=== PATIENT | male | born 1980 | race Caucasian/White ===

== ENCOUNTER 2021-01-15 09:39 | Emergency (ER) | payer OTHER, BC, SELFPAY ==
[2021-01-15 09:40] VITALS: BP 159/101; PULSE 93; RESP 18; TEMP 36.6; O2SAT 100; BMI 21.4
--- NOTE | 2021-01-15 10:03 | EDS_ITS ---
HPI History of Present Illness Chief Complaint: Lower Extremity Injury Informant: patient Narrative Narrative: 40-year-old male in town on business was coming down a ladder when he fell his foot was stuck between a rock and a pipe. He states he had a twisting motion and when he hit the ground his leg came free. He notes pain over the medial aspect of the left knee. He denies any other injuries. PFSH PFSH no medical history Surgical History (Updated 01/15/21 @ 10:[address] Tab Harris DO) S/P ACL repair Social History (Updated 01/15/21 @ 10:[address] Tab Harris DO) household members: spouse current occupational status: employed current gender identity: male ROS ROS ED Constitutional Constitutional ED: Denies chills or weight loss Eyes Eyes: Denies change in vision or diplopia ENT ENT ED: Denies ear pain, rhinorrhea or sore throat Cardiovascular Cardiovascular: Denies chest pain, orthopnea, palpitations or racing heartbeat Respiratory/Chest Respiratory/Chest: Denies cough, dyspnea or orthopnea Gastrointestinal Gastrointestinal: Denies abdominal pain, diarrhea, nausea or vomiting Genitourinary Genitourinary ED: Denies dysuria, hematuria or urinary frequency Musculoskeletal Musculoskeletal: Reports other Details: See history of present illness ; Denies arthralgias or myalgias Integumentary Denies abscess or rash Neurologic Neurologic: Denies headache(s) or weakness Psychiatric Psychiatric: Denies anxiety, depression, suicidal ideation or suicidal thoughts Endocrine Endocrinology: Denies polydipsia, polyphagia or polyuria Allergic/Immunologic Allergic/Immunologic ED: Denies mouth swelling, tongue swelling or urticaria EXAM Physical Exam Const Vital Signs: 01/15/21 09:40 Temperature 98 F Temperature Source Temporal Pulse Rate 93 Respiratory Rate 18 Blood Pressure 159/101 H Blood Pressure Mean 120 Pulse Ox 100 Oxygen Delivery Method Room Air Positive well nourished and well developed General Appearance ED: well developed HEENT Reports normocephalic, head/scalp atraumatic and moist mucous membranes normocephalic and atraumatic Eyes PERRL and EOMs intact bilaterally Neck no lymphadenopathy, supple and no JVD Resp normal respiratory effort and clear to auscultation bilaterally Cardio regular rate, regular rhythm and no murmurs GI normal to inspection, nondistended, normoactive bowel sounds and non-tender Palpation: soft Back/Spine no CVA tenderness and normal ROM Extremity Extremity Narrative: There appears to be a small left knee effusion. Patient wilcox s tenderness over the medial aspect of the joint line. There is laxity with MCL testing. General Extremety ED: Negative for edema General Extremity: Negative for edema Neuro oriented x3 and CN's II-XII intact bilaterally Sensorium / Orientation: alert Motor Exam: strength 5/5 throughout Psych mental status grossly normal Mood & Affect: Negative for depressed or tearful Skin no rashes or lesions noted and no wounds Discharge Plan Triage Chief Complaint: Lower Extremity Injury ED Provider: Tab Harris
[2021-01-15] MEDS: HYDROcodone Bitartrate/Apap 5/325 Tablet PO (10:15)
--- NOTE | 2021-01-15 10:17 | ED.RN ---
STAFF UNABLE TO ACCESS [employer]. MEDS VERIFIED WITH JOSE QUINONEZ. MEDS GIVEN PER PAVITHRA QUINONEZ.
--- NOTE | 2021-01-15 10:35 | RAD_ITS ---
STUDY: X-RAY - LEFT KNEE REASON FOR EXAM: Male, 40 years old. FALL OFF LADDER TECHNIQUE: 4 view(s) of the knee. COMPARISON: None. FINDINGS: Normal visualized distal femur. Normal visualized proximal tibia and fibula. Normal proximal tibiofibular articulation. Normal medial femorotibial compartment. Normal lateral femorotibial compartment. Normal patellofemoral articulation. The soft tissue structures are unremarkable. RAD/Knee 4 or More Views IMPRESSION: Normal x-ray examination of the knee. Electronically Signed: Jose Eduardo Ferrer MD at 11:17 EDT , Service support ,
[2021-01-15 11:27] VITALS: BP 163/99; PULSE 76; RESP 18; O2SAT 98
[2021-01-15 11:50] VITALS: PULSE 78; RESP 18; O2SAT 98
== END 2021-01-15 11:51 | disposition home or self-care (01) ==
PROVIDERS: Emergency Provider Emergency Medicine
DX: S83.412A Sprain of medial collateral ligament of left knee, initial encounter (principal); W11.XXXA Fall on and from ladder, initial encounter; Y93.89 Activity, other specified; Y92.89 Other specified places as the place of occurrence of the external cause; Y99.0 Civilian activity done for income or pay
CPT/HCPCS: 73564; 99283